=== PATIENT | male | born 1975 | race Caucasian/White ===

== ENCOUNTER 2016-06-29 09:08 | Emergency (ER) | payer BC ==
[2016-06-29 09:18] VITALS: BP 127/67
[2016-06-29 10:00] LABS: Hematocrit 42 % (42-52); Hemoglobin 14.6 g/dl (14.0-18.0); Mean Corpuscular HGB Conc 35 g/dl (31-36); Mean Corpuscular Hemoglobin 31 pg (27-31); Mean Corpuscular Volume 88 fL (80-94); Mean Platelet Volume 7 um3 (7.4-10.4); Red Blood Count 4.76 10^6/ul (4.0-5.4); Red Cell Distribution Width 13 % (10.5-15); White Blood Count 6.1 10^3/ul (3.5-10.8)
[2016-06-29 10:02] LABS: Urine Bilirubin Negative (Negative); Urine Glucose Negative (Negative); Urine Nitrite Negative (Negative)
[2016-06-29 10:18] LABS: ALT 14 U/L (7-52); AST 10 U/L (13-39); Albumin 4.2 g/dL (3.2-5.2); Alkaline Phosphatase 53 U/L (34-104); Anion Gap 6 mmol/L (2-11); BUN/Creatinine Ratio 16.2 (8-20); Blood Urea Nitrogen 11 mg/dL (6-24); C Reactive Protein < 1.00 mg/L (< 5.00); CO2 Carbon Dioxide 25 mmol/L (22-32); Calcium 9.2 mg/dL (8.6-10.3); Chloride 107 mmol/L (101-111); EGFR Non-African American 129.8 (>60); Globulin 2.3 g/dL (2-4); Glucose 94 mg/dL (70-100); Potassium 3.9 mmol/L (3.5-5.0); Sodium 138 mmol/L (133-145); Total Protein 6.5 g/dL (6.4-8.9)
--- NOTE | 2016-06-29 11:00 | RAD ---
Indication: RIGHT flank pain. History of urolithiasis. Comparison: No prior exams available on the [facility] for comparison. Technique: Renal ultrasound. 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 Normal renal cortical echogenicity. Mild caliectasis at the upper pole of the RIGHT kidney moiety. No conspicuous stones. Negative for perinephric fluid.
--- NOTE | 2016-06-29 14:09 | ED ---
Alberto Gomez Benjamin, scribed for Sreekanth Montero MD on 06/29/16 at 0945 . Abdominal Pain/Male - HPI Summary HPI Summary: 41yo male c/o nausea and right flank pain since last week. Pt reports pain with cough and movement. Pt states that cough, urination, and movement induces pain. Pt reports frequent Hx of UTI and kidney stones, and is wondering if he has another kidney stone today. - History of Current Complaint Chief Complaint: EDAbdPain Stated Complaint: GROIN PAIN/RT SIDE FLANK PAIN Hx Obtained From: Patient Onset/Duration: Lasting Weeks - 1 week Timing: Constant Severity Initially: Moderate Severity Currently: Moderate Pain Intensity: 6 Pain Scale Used: 0-10 Numeric Location: Flank - right Radiates: No Aggravating Factor(s): Movement, Other: - cough Alleviating Factor(s): Nothing Associated Signs And Symptoms: Positive: Urinary Symptoms - dysuria, Nausea - Allergies/Home Medications Allergies/Adverse Reactions: Allergies Allergy/AdvReac Type Severity Reaction Status Date / Time Bee Venom Allergy Swelling Verified 06/29/16 09:12 Of Face,Lips,& Throat Penicillins Allergy Rash Verified 06/29/16 09:11 PMH/Surg Hx/FS Hx/Imm Hx History: Reports: Hx Kidney Stones, Other Problems/Disorders - UTIs Infectious Disease History: No Infectious Disease History: Denies: Traveled Outside the [place] in Last 30 Days - Family History Known Family History: Positive: Cardiac Disease, Hypertension, Renal Disease - kidney problems Negative: Diabetes - Social History Occupation: Employed Full-time Lives: With Family Alcohol Use: None Hx Substance Use: No Substance Use Type: Reports: Marijuana Hx Tobacco Use: No Smoking Status (MU): Never Smoked Tobacco Review of Systems Constitutional: Negative Eyes: Negative ENT: Negative Cardiovascular: Negative Respiratory: Negative Positive: Nausea, Other - Right flank pain Positive: dysuria, flank pain Musculoskeletal: Negative Skin: Negative Neurological: Negative Psychological: Normal All Other Systems Reviewed And Are Negative: Yes Physical Exam Triage Information Reviewed: Yes Vital Signs On Initial Exam: Initial Vitals Temp Pulse Resp BP Pulse Ox 98.8 F 57 15 127/67 99 06/29/16 09:12 06/29/16 09:12 06/29/16 09:12 06/29/16 09:12 06/29/16 09:12 Vital Signs Reviewed: Yes Appearance: Positive: Well-Appearing, No Pain Distress, Well-Nourished Skin: Positive: Warm, Skin Color Reflects Adequate Perfusion, Dry Head/Face: Positive: Normal Head/Face Inspection Eyes: Positive: Normal ENT: Positive: Normal ENT inspection Neck: Positive: Supple, Nontender Respiratory/Lung Sounds: Positive: Clear to Auscultation, Breath Sounds Present Cardiovascular: Positive: RRR Abdomen Description: Positive: Nontender, Soft Bowel Sounds: Positive: Present Musculoskeletal: Positive: Normal, Strength/ROM Intact Neurological: Positive: Normal, Sensory/Motor Intact, Alert, Oriented to Person Place, Time, CN Intact II-III Psychiatric: Positive: Affect/Mood Appropriate Diagnostics - Vital Signs Vital Signs Temp Pulse Resp BP Pulse Ox 06/29/16 09:12 98.8 F 57 15 127/67 99 - Laboratory Lab Results: Lab Results 06/29/16 06/29/16 06/29/16 Range/Units 09:45 09:45 09:45 WBC 6.1 (3.5-10.8) 10^3/ul RBC 4.76 (4.0-5.4) 10^6/ul Hgb 14.6 (14.0-18.0) g/dl Hct 42 (42-52) % MCV 88 (80-94) fL MCH 31 (27-31) pg MCHC 35 (31-36) g/dl RDW 13 (10.5-15) % Plt Count 249 (150-450) 10^3/ul MPV 7 L (7.4-10.4) um3 Neut % (Auto) 60.7 (38-83) % Lymph % (Auto) 29.3 (25-47) % [place] % (Auto) 6.0 (1-9) % Eos % (Auto) 1.3 (0-6) % Baso % (Auto) 2.7 H (0-2) % Absolute Neuts (auto) 3.7 (1.5-7.7) 10^3/ul Absolute Lymphs (auto) 1.8 (1.0-4.8) 10^3/ul Absolute Monos (auto) 0.4 (0-0.8) 10^3/ul Absolute Eos (auto) 0.1 (0-0.6) 10^3/ul Absolute Basos (auto) 0.2 (0-0.2) 10^3/ul Absolute Nucleated RBC 0 10^3/ul Nucleated RBC % 0.1 Sodium 138 (133-145) mmol/L Potassium 3.9 (3.5-5.0) mmol/L Chloride 107 (101-111) mmol/L Carbon Dioxide 25 (22-32) mmol/L Anion Gap 6 (2-11) mmol/L BUN 11 (6-24) mg/dL Creatinine 0.68 (0.67-1.17) mg/dL Est GFR ( Amer) 167.0 (>60) Est GFR (Non-Af Amer) 129.8 (>60) BUN/Creatinine Ratio 16.2 (8-20) Glucose 94 (70-100) mg/dL Lactic Acid (0.5-2.0) mmol/L Calcium 9.2 (8.6-10.3) mg/dL Total Bilirubin 0.50 (0.2-1.0) mg/dL AST 10 L (13-39) U/L ALT 14 (7-52) U/L Alkaline Phosphatase 53 (34-104) U/L C-Reactive Protein < 1.00 (< 5.00) mg/L Total Protein 6.5 (6.4-8.9) g/dL Albumin 4.2 (3.2-5.2) g/dL Globulin 2.3 (2-4) g/dL Albumin/Globulin Ratio 1.8 (1-3) Urine Color Yellow Urine Appearance Clear Urine pH 6.0 (5-9) Ur Specific [place] 1.020 (1.010-1.030) Urine Protein Negative (Negative) Urine Ketones Negative (Negative) Urine Blood Negative (Negative) Urine Nitrate Negative (Negative) Urine Bilirubin Negative (Negative) Urine Urobilinogen Negative (Negative) Ur Leukocyte Esterase Negative (Negative) Urine Glucose Negative (Negative) 06/29/16 Range/Units 09:45 WBC (3.5-10.8) 10^3/ul RBC (4.0-5.4) 10^6/ul Hgb (14.0-18.0) g/dl Hct (42-52) % MCV (80-94) fL MCH (27-31) pg MCHC (31-36) g/dl RDW (10.5-15) % Plt Count (150-450) 10^3/ul MPV (7.4-10.4) um3 Neut % (Auto) (38-83) % Lymph % (Auto) (25-47) % [place] % (Auto) (1-9) % Eos % (Auto) (0-6) % Baso % (Auto) (0-2) % Absolute Neuts (auto) (1.5-7.7) 10^3/ul Absolute Lymphs (auto) (1.0-4.8) 10^3/ul Absolute Monos (auto) (0-0.8) 10^3/ul Absolute Eos (auto) (0-0.6) 10^3/ul Absolute Basos (auto) (0-0.2) 10^3/ul Absolute Nucleated RBC 10^3/ul Nucleated RBC % Sodium (133-145) mmol/L Potassium (3.5-5.0) mmol/L Chloride (101-111) mmol/L Carbon Dioxide (22-32) mmol/L Anion Gap (2-11) mmol/L BUN (6-24) mg/dL Creatinine (0.67-1.17) mg/dL Est GFR ( Amer) (>60) Est GFR (Non-Af Amer) (>60) BUN/Creatinine Ratio (8-20) Glucose (70-100) mg/dL Lactic Acid 0.9 (0.5-2.0) mmol/L Calcium (8.6-10.3) mg/dL Total Bilirubin (0.2-1.0) mg/dL AST (13-39) U/L ALT (7-52) U/L Alkaline Phosphatase (34-104) U/L C-Reactive Protein (< 5.00) mg/L Total Protein (6.4-8.9) g/dL Albumin (3.2-5.2) g/dL Globulin (2-4) g/dL Albumin/Globulin Ratio (1-3) Urine Color Urine Appearance Urine pH (5-9) Ur Specific [place] (1.010-1.030) Urine Protein (Negative) Urine Ketones (Negative) Urine Blood (Negative) Urine Nitrate (Negative) Urine Bilirubin (Negative) Urine Urobilinogen (Negative) Ur Leukocyte Esterase (Negative) Urine Glucose (Negative) Result Diagrams: 06/29/16 09:45 06/29/16 09:45 Lab Statement: Any lab studies that have been ordered have been reviewed, and results considered in the medical decision making process. - Ultrasound No standard instances Ultrasound Interpretation: Positive (See Comments) - Renal ultrasound. 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 Normal renal cortical echogenicity. Mild caliectasis at the upper pole of the RIGHT kidney moiety. No conspicuous stones. Negative for perinephric fluid. 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 Today he developed mild dysuria and he became concerned that he had a UTI. His urine was clear and an U/S of the right flank was negative for hydronephrosis. - Diagnoses Provider Diagnoses: FLANK PAIN Discharge - Discharge Plan Condition: Stable Disposition: HOME Patient Education Materials: Flank Pain (ED) Additional Instructions: Please follow up with your Primary Care Physician in a few days. The documentation as recorded by the Alberto lopez Benjamin accurately reflects the service I personally performed and the decisions made by me, Sreekanth Montero MD.
== END 2016-06-29 12:19 | disposition home or self-care (01) ==
LOC: ED 09:08
DX: R10.84 Generalized abdominal pain (principal); R11.0 Nausea; R30.0 Dysuria
CPT/HCPCS: 36415; 76775; 80053; 81003; 83605; 85025; 86140; 99282

== ENCOUNTER 2016-07-22 21:51 | Inpatient (IN) | payer BC ==
[2016-07-22] MEDS ORDERED: Ondansetron INJ* 2 MG/ML VIAL IV ONE (22:16)
[2016-07-22] MEDS ORDERED: NS 0.9% 1000 ML* 1,000 ML IV ONE (22:16)
[2016-07-22 23:24] LABS: Add Diff/Slide Review? Slide Review Added; Comments Flag Yes; Hematocrit 50 % (42-52); Hemoglobin 16.7 g/dl (14.0-18.0); Mean Corpuscular HGB Conc 34 g/dl (31-36); Mean Corpuscular Hemoglobin 29 pg (27-31); Mean Corpuscular Volume 87 fL (80-94); Red Blood Count 5.74 10^6/ul (4.0-5.4); Red Cell Distribution Width 14 % (10.5-15); White Blood Count 19.1 10^3/ul (3.5-10.8)
[2016-07-22 23:32] LABS: ALT 15 U/L (7-52); Albumin 5.5 g/dL (3.2-5.2); Alkaline Phosphatase 60 U/L (34-104); BUN/Creatinine Ratio 13.8 (8-20); Blood Urea Nitrogen 16 mg/dL (6-24); C Reactive Protein < 1.00 mg/L (< 5.00); CO2 Carbon Dioxide 20 mmol/L (22-32); Chloride 101 mmol/L (101-111); EGFR African American 90.1 (>60); EGFR Non-African American 70.1 (>60); Globulin 2.6 g/dL (2-4); Glucose 157 mg/dL (70-100); Magnesium 1.9 mg/dL (1.9-2.7); Sodium 138 mmol/L (133-145); Total Protein 8.1 g/dL (6.4-8.9)
[2016-07-22 23:43] LABS: AST 19 U/L (13-39); Anion Gap 17 mmol/L (2-11); Potassium 4.5 mmol/L (3.5-5.0)
[2016-07-22] MEDS ORDERED: Metoclopramide IV* 5 MG/ML 2 ML VIAL IV ONE (23:46)
[2016-07-23] MEDS ORDERED: Ketorolac INJ* 30 MG/ML 1 ML VIAL IV PUSH ONE (00:43)
[2016-07-23] MEDS ORDERED: Iohexol 300* (CONTRAST) 10 ML SDV IV ONE (00:53)
--- NOTE | 2016-07-23 01:09 | ED ---
Alberto Gomez Benjamin, scribed for Salazar Arellano MD on 07/22/16 at 2218 . Abdominal Pain/Male - HPI Summary HPI Summary: 41yo male c/o nausea and flank pain on and off for couple of weeks. Pt states "feels like i've been passing microstones." Pt has hx of kidney stones. Pt reports pain worsening with BM. Today, pt started vomiting since 4pm. - History of Current Complaint Chief Complaint: EDNauseaVomitDiarrh Stated Complaint: NAUSEA,VOMITING Time Seen by Provider: 07/22/16 22:13 Hx Obtained From: Patient, Family/Assistant Superintendent - Onset/Duration: Sudden Onset, Still Present Timing: Constant Severity Initially: Moderate Severity Currently: Moderate Pain Intensity: 6 Pain Scale Used: 0-10 Numeric Location: Flank Aggravating Factor(s): Other: - BM Alleviating Factor(s): Nothing Associated Signs And Symptoms: Positive: Nausea, Vomiting - Allergies/Home Medications Allergies/Adverse Reactions: Allergies Allergy/AdvReac Type Severity Reaction Status Date / Time Bee Venom Allergy Swelling Verified 06/29/16 09:12 Of Face,Lips,& Throat Penicillins Allergy Rash Verified 06/29/16 09:11 Home Medications: Home Medications NK [No Home Medications Reported] 07/23/16 [History Confirmed 07/23/16] PMH/Surg Hx/FS Hx/Imm Hx History: Reports: Hx Kidney Stones, Other Problems/Disorders - UTIs Infectious Disease History: No Infectious Disease History: Denies: Traveled Outside the [place] in Last 30 Days - Family History Known Family History: Positive: Cardiac Disease, Hypertension, Renal Disease - kidney problems Negative: Diabetes - Social History Alcohol Use: None Hx Substance Use: No Substance Use Type: Reports: Marijuana Hx Tobacco Use: No Smoking Status (MU): Never Smoked Tobacco Review of Systems Constitutional: Negative Eyes: Negative ENT: Negative Cardiovascular: Negative Respiratory: Negative Positive: Vomiting, Nausea Positive: flank pain Musculoskeletal: Negative Skin: Negative Neurological: Negative Psychological: Normal All Other Systems Reviewed And Are Negative: Yes Physical Exam Triage Information Reviewed: Yes Vital Signs On Initial Exam: Initial Vitals Temp Pulse Resp BP Pulse Ox 96.7 F 92 18 149/84 100 07/22/16 21:54 07/22/16 21:54 07/22/16 21:54 07/22/16 21:54 07/22/16 21:54 Vital Signs Reviewed: Yes Appearance: Positive: Well-Appearing, Pain Distress - mildly uncomfortable Skin: Positive: Warm Eyes: Positive: EOMI, FRANK ENT: Positive: Hearing grossly normal Neck: Positive: Supple Respiratory/Lung Sounds: Positive: Breath Sounds Present, Decreased Breath Sounds Cardiovascular: Positive: Normal Abdomen Description: Positive: No Organomegaly, Soft, Other: - mild diffuse tenderness. Negative: CVA Tenderness (R), CVA Tenderness (L), Distended Bowel Sounds: Positive: Present Musculoskeletal: Positive: Strength/ROM Intact Neurological: Positive: Sensory/Motor Intact Psychiatric: Positive: Affect/Mood Appropriate Diagnostics - Vital Signs Vital Signs Temp Pulse Resp BP Pulse Ox 07/22/16 21:54 96.7 F 92 18 149/84 100 - Laboratory Lab Results: Lab Results 07/22/16 07/22/16 Range/Units 23:10 23:10 WBC 19.1 H (3.5-10.8) 10^3/ul RBC 5.74 H (4.0-5.4) 10^6/ul Hgb 16.7 (14.0-18.0) g/dl Hct 50 (42-52) % MCV 87 (80-94) fL MCH 29 (27-31) pg MCHC 34 (31-36) g/dl RDW 14 (10.5-15) % Plt Count Not Reportable Neut % (Auto) 91.8 H (38-83) % Lymph % (Auto) 4.0 L (25-47) % [place] % (Auto) 3.7 (1-9) % Eos % (Auto) 0 (0-6) % Baso % (Auto) 0.5 (0-2) % Absolute Neuts (auto) 17.5 H (1.5-7.7) 10^3/ul Absolute Lymphs (auto) 0.8 L (1.0-4.8) 10^3/ul Absolute Monos (auto) 0.7 (0-0.8) 10^3/ul Absolute Eos (auto) 0 (0-0.6) 10^3/ul Absolute Basos (auto) 0.1 (0-0.2) 10^3/ul Absolute Nucleated RBC 0 10^3/ul Nucleated RBC % 0 Sodium 138 (133-145) mmol/L Potassium 4.5 (3.5-5.0) mmol/L Chloride 101 (101-111) mmol/L Carbon Dioxide 20 L (22-32) mmol/L Anion Gap 17 H (2-11) mmol/L BUN 16 (6-24) mg/dL Creatinine 1.16 (0.67-1.17) mg/dL Est GFR ( Amer) 90.1 (>60) Est GFR (Non-Af Amer) 70.1 (>60) BUN/Creatinine Ratio 13.8 (8-20) Glucose 157 H (70-100) mg/dL Calcium 11.0 H (8.6-10.3) mg/dL Magnesium 1.9 (1.9-2.7) mg/dL Total Bilirubin 1.00 (0.2-1.0) mg/dL AST 19 (13-39) U/L ALT 15 (7-52) U/L Alkaline Phosphatase 60 (34-104) U/L C-Reactive Protein < 1.00 (< 5.00) mg/L Total Protein 8.1 (6.4-8.9) g/dL Albumin 5.5 H (3.2-5.2) g/dL Globulin 2.6 (2-4) g/dL Albumin/Globulin Ratio 2.1 (1-3) Result Diagrams: 07/22/16 23:10 07/22/16 23:10 Lab Statement: Any lab studies that have been ordered have been reviewed, and results considered in the medical decision making process. - CT CT A/P W CT Interpretation: No Acute Changes CT Interpretation Completed By: Radiologist Re-Evaluation - Re-Evaluation First Eval Comment: pt mildly improved but still with nausea, vomit and pain. d/w hospitalist Abdominal Pain Fem Course/Dx - Diagnoses Provider Diagnoses: Abdominal pain - Provider Notifications Instructed by Provider To: Admit As Inpatient Discharge - Discharge Plan Condition: Fair Disposition: ADMITTED TO [facility] The documentation as recorded by the Alberto lopez Benjamin accurately reflects the service I personally performed and the decisions made by me, Salazar Arellano MD.
[2016-07-23 01:54] LABS: Urine Bacteria Absent (Absent); Urine Bilirubin Negative (Negative); Urine Glucose Negative (Negative); Urine Nitrite Negative (Negative)
[2016-07-23] MEDS ORDERED: Metoclopramide IV* 5 MG/ML 2 ML VIAL IV ONE (02:44)
[2016-07-23] MEDS ORDERED: Morphine INJ* 4 MG/ML 1 ML CARPUJECT IV ONE (02:44)
[2016-07-23] MEDS ORDERED: Ondansetron INJ* 2 MG/ML VIAL IV PRN (04:40)
[2016-07-23] MEDS: HYDROmorphone INJ* 1 MG/ML CARPUJECT SYRINGE IV SLOW PU PRN ×4 (05:03→17:19)
[2016-07-23] MEDS: Ondansetron INJ* 2 MG/ML VIAL IV PRN ×3 (05:03→17:19)
[2016-07-23] MEDS: NS 0.9% 1000 ML* 1,000 ML IV SCH ×2 (07:20→17:27)
--- NOTE | 2016-07-23 08:05 | RAD ---
INDICATION: Cough COMPARISON: None TECHNIQUE: PA and lateral dual-energy views were obtained. FINDINGS: Bones/Soft Tissues: There are no acute bony findings. Cardiomediastinal: The cardiomediastinal silhouette is normal. Lungs: There are no infiltrates. Pleura: There are no pleural effusions. Other: None IMPRESSION: NEGATIVE EXAMINATION.
--- NOTE | 2016-07-23 08:11 | RAD ---
INDICATION: Abdominal pain. History of urolithiasis. Previous ureteral stent. Horseshoe kidney. COMPARISON: June 29, 2016 renal ultrasound. TECHNIQUE: Multidetector CT images were obtained from the lung bases to the ischial tuberosities with 139 mL Omnipaque 300 IV and oral contrast. Multiplanar reformation. REPORT: Unremarkable visualized inferior thorax. Typical location focal fatty infiltration at the LEFT medial hepatic segment flanking the fissure for the ligamentum teres. No suspicious hepatic lesions. No CT abnormality of the gallbladder. Negative for biliary dilatation. Unremarkable pancreas and spleen. Negative for CT abnormality of the upper GI, small bowel, retrocecal appendix, colon. Negative for ascites, free air, hernias. Normal adrenal glands. Horseshoe morphology kidney with symmetric nephrograms and pyelograms at the RIGHT and LEFT moieties. Negative for conspicuous stones, hydronephrosis, or suspicious focal renal lesions. Unremarkable ureters and urinary bladder. Unremarkable prostate and seminal vesicles. Negative for lymphadenopathy. Normal diameter abdominal aorta and iliac arteries. Physiologic distention of the IVC. Negative for suspicious osseous lesions. IMPRESSION: 1. Horseshoe morphology kidney. Negative for obstructive uropathy, focal renal lesions, or perirenal or periureteral inflammatory change. 2. Normal appendix documented. 3. No acute abdominal pelvic pathologic process evident.
--- NOTE | 2016-07-23 09:52 | HP ---
DATE OF ADMISSION: 07/23/16 CHIEF COMPLAINT: Abdominal pain. HISTORY OF PRESENT ILLNESS: The patient is a 41-year-old gentleman who presents to the [facility] with the chief complaint of nausea, vomiting and diarrhea, and abdominal pain. He has no fever or chills. His last bowel movement he said was "clumpy"; that was yesterday. The abdominal pain was in the mid section and was crampy-like. He states that sometimes he gets this pain even pain even when just thinking of eating. He says, on reflection, his pain has actually been on and off with nausea and vomiting and diarrhea for about 10 years. He has actually had a colonoscopy for it. In the ED, the patient was evaluated and had AN abdominopelvic CT which, other than a horseshoe kidney, was rather unremarkable. PAST MEDICAL HISTORY: Notable for horseshoe kidney. ALLERGIES/ADVERSE REACTIONS: BEE VENOM AND PENICILLIN. FAMILY HISTORY: Mother is alive at 62, alive and well; father is alive 70, alive and well. SOCIAL HISTORY: Occasional marijuana. No tobacco. No alcohol. He's trained in [employer]. He is . He has three children. Hawa Hayden, is his healthcare proxy and . REVIEW OF SYSTEMS: A 14-point review of systems is completed with the patient. All pertinent positives and negatives are in the history of present illness, otherwise it is negative. PHYSICAL EXAMINATION GENERAL: A pleasant gentleman, lying in bed, in no acute distress. VITAL SIGNS: Temperature 97.9 degrees, heart rate 75 beats per minute, respiratory rate 16 breaths per minute, pulse ox 96%, and blood pressure 136/52. HEENT: Normocephalic and atraumatic. Pupils are equal, round and reactive to light. Moist mucous membranes. NECK: Supple. No JVD, bruits, palpable thyroid, or lymphadenopathy. CHEST: Clear to auscultation and percussion bilaterally. CARDIOVASCULAR: S1, S2 appreciated. Regular rate and rhythm. ABDOMEN: Positive bowel sounds in all 4 quadrants. Soft. It is nontender and nondistended. EXTREMITIES: No cyanosis, clubbing, or edema; +2 pulses bilaterally. NEUROLOGIC: Alert and oriented x3. Moves all extremities. SKIN: No rashes or abnormalities. DIAGNOSTIC STUDIES/LAB DATA: White count 19.1, hemoglobin 16.7, hematocrit 50 , platelets not reportable, clumped. Sodium 138, potassium 4.5, chloride 101, CO2 20, BUN 16, creatinine 1.16. Urinalysis +1 WBC, +1 RBC. His chest x-ray was interpreted by radiology as negative examination. His abdominopelvic CT was interpreted by radiology as horseshoe morphology kidney. Negative for obstructive uropathy, focal lesions or inflammatory change. Normal appendix documented. No acute abdominopelvic pathology process evident. ASSESSMENT AND PLAN: 1. Abdominal pain with nausea, vomiting or diarrhea. It is unclear as to what the etiology of this is. It is probably a gastroenteritis. However, he has had this on and off for 10 years. What is suspicious is the white count. Otherwise , I would think he probably has something like irritable bowel syndrome, at least a variation of that. Negative colonoscopy, negative workup today would be a diagnosis of exclusion. We will place the patient on IV fluids, Zofran p.r.n. and Dilaudid p.r.n. for pain. If he's still feeling well, he can be discharged later today, but we should make him follow up with enrollment advisor as an outpatient. 2. FEN. Clear liquid diet, advance as tolerated. 3. DVT prophylaxis. None; he's young and ambulatory. 4. The patient is a full code. TIME SPENT: Over 75 minutes were spent on this H and P, more than 40 minutes of which were spent in direct [id number] contact with the patient, evaluation , physical exam, counseling, and coordination of care. [id number]/CPS #: [id number] MTDD
--- NOTE | 2016-07-23 17:05 | PN ---
Subjective Date of Service: 07/23/16 Interval History: Patient seen and examined at bedside. Pt states that he is starting to feel better, but continues to have nausea and mild left lower quad abdominal pain. Denies fever, chills, shortness of breath, chest discomfort, V/D. Family History: Unchanged from Admission Social History: Unchanged from Admission Past Medical History: Unchanged from Admission Objective Active Medications: Hydromorphone HCl (Dilaudid Iv*) 1 mg IV SLOW PU Q4H PRN Reason: PAIN Sodium Chloride (Ns 0.9% 1000 Ml*) 1,000 mls @ 100 mls/hr IV PER RATE YARITZA Ondansetron HCl (Zofran Inj*) 4 mg IV Q4H PRN Reason: NAUSEA Prochlorperazine Edisylate (Compazine Inj*) 5 mg IV Q6H PRN Reason: NAUSEA/ VOMITING Vital Signs 07/23/16 07/23/16 07/23/16 05:03 05:54 06:00 Temperature Pulse Rate Respiratory 18 Rate Blood Pressure 99/46 100/39 (mmHg) O2 Sat by Pulse Oximetry 07/23/16 07/23/16 07/23/16 06:46 07:22 07:25 Temperature 97.9 F 97.9 F Pulse Rate 75 75 Respiratory 18 16 16 Rate Blood Pressure 136/52 136/52 (mmHg) O2 Sat by Pulse 96 96 Oximetry 07/23/16 07/23/16 07/23/16 07:55 12:09 13:22 Temperature 97.7 F Pulse Rate 62 Respiratory 16 16 16 Rate Blood Pressure 133/56 (mmHg) O2 Sat by Pulse 99 Oximetry 07/23/16 07/23/16 14:22 15:15 Temperature 97.9 F Pulse Rate 66 Respiratory 18 16 Rate Blood Pressure 108/55 (mmHg) O2 Sat by Pulse 97 Oximetry Oxygen Devices in Use Now: None Appearance: NAD, laying in bed. Eyes: No Scleral Icterus, PERRLA Ears/Nose/Mouth/Throat: NL Teeth, Lips, Gums, Mucous Membranes Moist Neck: NL Appearance and Movements; NL JVP, Trachea Midline Respiratory: Symmetrical Chest Expansion and Respiratory Effort, Clear to Auscultation Cardiovascular: NL Sounds; No Murmurs; No JVD, RRR Abdominal: NL Sounds; No Tenderness; No Distention - Bowel sounds present Extremities: No Edema Skin: No Rash or Ulcers Neurological: Alert and Oriented x 3, NL Muscle Strength and Tone Lines/Tubes/Other Access: Clean, Dry and Intact Peripheral IV - site benign Nutrition: Taking PO's Result Diagrams: 07/22/16 23:10 07/22/16 23:10 Assess/Plan/Problems-Billing Assessment: Mr. Wilson is a 41 yo male with PMH significant for a horseshoe shaped kidney who presented to the emergency room with complaints of N/V/D and abdominal pain. - Patient Problems (1) Nausea vomiting and diarrhea Code(s): R11.2 - NAUSEA WITH VOMITING, UNSPECIFIED; R19.7 - DIARRHEA, UNSPECIFIED SNOMED Code(s): 6175305 Comment: - Diarrhea and vomiting resolved - Continues to have nausea - Leukocytosis, suspect related to viral gastroenteritis - Continue IVF (2) DVT prophylaxis Code(s): WUI1039 - SNOMED Code(s): 133219281 Comment: - Ambulate (3) Full code status Code(s): Z78.9 - OTHER SPECIFIED HEALTH STATUS SNOMED Code(s): 969478859 Status and Disposition: OBV. Discharge to home when medically stable, possibly in the AM.
[2016-07-23] MEDS: PROCHLORPERAZINE INJ 5 MG/ML 2 ML VIAL IV PRN (20:39)
[2016-07-24] MEDS: NS 0.9% 1000 ML* 1,000 ML IV SCH (03:45)
[2016-07-24] MEDS: Ondansetron INJ* 2 MG/ML VIAL IV PRN ×2 (03:46→09:17)
[2016-07-24] MEDS: HYDROmorphone INJ* 1 MG/ML CARPUJECT SYRINGE IV SLOW PU PRN ×5 (03:47→22:00)
[2016-07-24] MEDS: PROCHLORPERAZINE INJ 5 MG/ML 2 ML VIAL IV PRN ×3 (05:16→21:57)
[2016-07-24 07:02] LABS: Hematocrit 41 % (42-52); Hemoglobin 14.3 g/dl (14.0-18.0); Mean Corpuscular HGB Conc 35 g/dl (31-36); Mean Corpuscular Hemoglobin 31 pg (27-31); Mean Corpuscular Volume 88 fL (80-94); Mean Platelet Volume 9 um3 (7.4-10.4); Red Blood Count 4.68 10^6/ul (4.0-5.4); Red Cell Distribution Width 14 % (10.5-15); White Blood Count 10.7 10^3/ul (3.5-10.8)
[2016-07-24 07:07] LABS: BUN/Creatinine Ratio 13.3 (8-20); Calcium 9.6 mg/dL (8.6-10.3); EGFR African American 149.1 (>60); EGFR Non-African American 115.9 (>60)
[2016-07-24] MEDS ORDERED: HYDROmorphone INJ* 1 MG/ML CARPUJECT SYRINGE ONE (08:10)
[2016-07-24] MEDS ORDERED: Ketorolac INJ* 30 MG/ML 1 ML VIAL ONE (09:27)
[2016-07-24] MEDS: Ketorolac INJ* 30 MG/ML 1 ML VIAL IV PUSH PRN ×2 (09:30→15:51)
[2016-07-24 10:27] LABS: Add on Test ED Complete
--- NOTE | 2016-07-24 10:35 | PN ---
Subjective Date of Service: 07/24/16 Interval History: Pt is feeling better than when he presented though still very nauseated. He states even the thought of food makes his nauseous. He thinks anxiety may be playing a role but he is unclear how much. His abdominal pain is still present though perhaps slightly better. Objective Active Medications: Hydromorphone HCl (Dilaudid Iv*) 0.5 mg IV SLOW PU Q2H PRN PRN Reason: PAIN Last Admin: 07/24/16 08:13 Dose: 0.5 mg Ketorolac Tromethamine (Toradol Inj*) 30 mg IV PUSH Q6H PRN PRN Reason: PAIN Last Admin: 07/24/16 09:30 Dose: 30 mg Lorazepam (Ativan Inj*) 0.5 mg IV PUSH Q6H PRN PRN Reason: ANXIETY Metoclopramide HCl (Reglan Iv*) 10 mg IV AC YARITZA Ondansetron HCl (Zofran Inj*) 4 mg IV Q4H PRN PRN Reason: NAUSEA Last Admin: 07/24/16 09:17 Dose: 4 mg Prochlorperazine Edisylate (Compazine Inj*) 5 mg IV Q6H PRN PRN Reason: NAUSEA/VOMITING Last Admin: 07/24/16 05:16 Dose: 5 mg Vital Signs 07/23/16 07/23/16 07/23/16 12:09 13:22 14:22 Temperature 97.7 F Pulse Rate 62 Respiratory 16 16 18 Rate Blood Pressure 133/56 (mmHg) O2 Sat by Pulse 99 Oximetry 07/23/16 07/23/16 07/23/16 15:15 17:09 17:19 Temperature 97.9 F 97.5 F Pulse Rate 66 Respiratory 16 20 Rate Blood Pressure 108/55 (mmHg) O2 Sat by Pulse 97 Oximetry 07/23/16 07/23/16 07/23/16 18:19 19:22 20:00 Temperature 98.0 F Pulse Rate 66 Respiratory 16 18 20 Rate Blood Pressure 119/62 (mmHg) O2 Sat by Pulse 96 Oximetry 07/24/16 07/24/16 07/24/16 00:07 03:39 03:47 Temperature 98.1 F 98.2 F Pulse Rate 64 65 Respiratory 16 20 18 Rate Blood Pressure 128/62 165/89 (mmHg) O2 Sat by Pulse 98 100 Oximetry 07/24/16 07/24/16 07/24/16 04:47 07:05 07:26 Temperature 97.8 F Pulse Rate 55 Respiratory 20 16 18 Rate Blood Pressure 132/68 (mmHg) O2 Sat by Pulse 99 Oximetry 07/24/16 07/24/16 08:13 09:13 Temperature Pulse Rate Respiratory 16 16 Rate Blood Pressure (mmHg) O2 Sat by Pulse Oximetry Oxygen Devices in Use Now: None Appearance: Middle aged male lying in bed, NAD Eyes: No Scleral Icterus Ears/Nose/Mouth/Throat: Mucous Membranes Moist Respiratory: Symmetrical Chest Expansion and Respiratory Effort, Clear to Auscultation Cardiovascular: NL Sounds; No Murmurs; No JVD, RRR, No Edema Abdominal: - - BS+ soft, ND, diffusely tender to deep palpation though LLQ the worst Extremities: No Clubbing, Cyanosis Skin: No Rash or Ulcers, No Nodules or Sclerosis Neurological: Alert and Oriented x 3 Result Diagrams: 07/24/16 06:31 07/24/16 06:32 Additional Lab and Data: Lab Results 07/22/16 07/22/16 Range/Units 23:10 23:10 WBC 19.1 H (3.5-10.8) 10^3/ul RBC 5.74 H (4.0-5.4) 10^6/ul Hgb 16.7 (14.0-18.0) g/dl Hct 50 (42-52) % MCV 87 (80-94) fL MCH 29 (27-31) pg MCHC 34 (31-36) g/dl RDW 14 (10.5-15) % Plt Count Not Reportable Neut % (Auto) 91.8 H (38-83) % Lymph % (Auto) 4.0 L (25-47) % [place] % (Auto) 3.7 (1-9) % Eos % (Auto) 0 (0-6) % Baso % (Auto) 0.5 (0-2) % Absolute Neuts (auto) 17.5 H (1.5-7.7) 10^3/ul Absolute Lymphs (auto) 0.8 L (1.0-4.8) 10^3/ul Absolute Monos (auto) 0.7 (0-0.8) 10^3/ul Absolute Eos (auto) 0 (0-0.6) 10^3/ul Absolute Basos (auto) 0.1 (0-0.2) 10^3/ul Absolute Nucleated RBC 0 10^3/ul Nucleated RBC % 0 Sodium 138 (133-145) mmol/L Potassium 4.5 (3.5-5.0) mmol/L Chloride 101 (101-111) mmol/L Carbon Dioxide 20 L (22-32) mmol/L Anion Gap 17 H (2-11) mmol/L BUN 16 (6-24) mg/dL Creatinine 1.16 (0.67-1.17) mg/dL Est GFR ( Amer) 90.1 (>60) Est GFR (Non-Af Amer) 70.1 (>60) BUN/Creatinine Ratio 13.8 (8-20) Glucose 157 H (70-100) mg/dL Calcium 11.0 H (8.6-10.3) mg/dL Magnesium 1.9 (1.9-2.7) mg/dL Total Bilirubin 1.00 (0.2-1.0) mg/dL AST 19 (13-39) U/L ALT 15 (7-52) U/L Alkaline Phosphatase 60 (34-104) U/L C-Reactive Protein < 1.00 (< 5.00) mg/L Total Protein 8.1 (6.4-8.9) g/dL Albumin 5.5 H (3.2-5.2) g/dL Globulin 2.6 (2-4) g/dL Albumin/Globulin Ratio 2.1 (1-3) Assess/Plan/Problems-Billing Mr. Wilson is a 41 yo male with PMHx significant for a horseshoe kidney who presented to the emergency room with complaints of N/V/D and abdominal pain. - Patient Problems (1) Nausea and vomiting Current Visit: Yes Status: Acute Code(s): R11.2 - NAUSEA WITH VOMITING, UNSPECIFIED SNOMED Code(s): 55342392 Comment: The patient give history that he has been nauseated for at least a couple weeks though his states that his nausea has been going on for perhaps months. The vomiting is more acute and developed about 3 days ago. He continues to vomit-he vomited twice while I was in the room. Will try standing reglan prior to meals. Continue prn zofran and compazine. GI consult to happen today for history of persistent nausea. He has not had a BM since 07/22/16-no diarrhea. (2) Abdominal pain Current Visit: Yes Status: Acute Code(s): R10.9 - UNSPECIFIED ABDOMINAL PAIN SNOMED Code(s): 13302401 Comment: Etiology is not clear. I have added on lipase/amylase per recommendations from Dr. Burger. CT abd/pelvis without significant findings. Continue prn pain medications. He states having a BM does not necessarily make the pain better-sometimes it is worse after a BM. Continue to monitor symptoms. (3) DVT prophylaxis Current Visit: Yes Status: Acute Code(s): YPO0768 - SNOMED Code(s): 012737937 Comment: ambulation (4) Full code status Current Visit: Yes Status: Acute Code(s): Z78.9 - OTHER SPECIFIED HEALTH STATUS SNOMED Code(s): 061792894 Status and Disposition: .
[2016-07-24 10:43] LABS: Amylase 21 U/L (29-103); Lipase < 10 U/L (11.0-82.0)
[2016-07-24] MEDS: LORazepam INJ* 2 MG/ML 1 ML VIAL IV PUSH PRN ×2 (10:43→17:58)
[2016-07-24] MEDS: Metoclopramide IV* 5 MG/ML 2 ML VIAL IV SCH ×2 (11:58→17:57)
[2016-07-24 13:21] LABS: Hematocrit 39 % (42-52); Hemoglobin 13.5 g/dl (14.0-18.0); Mean Corpuscular HGB Conc 35 g/dl (31-36); Mean Corpuscular Hemoglobin 30 pg (27-31); Mean Corpuscular Volume 87 fL (80-94); Mean Platelet Volume 8 um3 (7.4-10.4); Red Cell Distribution Width 13 % (10.5-15); White Blood Count 10.1 10^3/ul (3.5-10.8)
--- NOTE | 2016-07-24 20:16 | CONS ---
GASTROENTEROLOGY CONSULT: DATE: 07/24/16 - ROOM #332 CONSULTING PHYSICIAN: Rochelle Tomlinson DO. REASON FOR CONSULT: Nausea and vomiting which began 2 days ago, though says he has been feeling poorly since March, and history of similar N+V complaints goes back 10 years. HISTORY OF PRESENT ILLNESS: This 41-year-old man presented to the emergency room complaining of nausea and vomiting. He had stable vitals but persistence of the complaint and statement that this had caused hospitalizations before, resulted in his being admitted evening, 07/22/16. Since admission he has remained afebrile. He has retched into a basin. Per report he has been unable to tolerate anything p.o. He has not had any bowel movements, though had reported some loose stools at home. He has not had any antibiotics in several years. Initially in asking for the history, his (a nurse at [facility] in the Cardiac Step-Down Unit) started by saying that he began feeling poorly in March. The patient then said he just found himself "not wanting food." He then said that he was so hungry but "just not as much." He said this went on with all foods. He was queasy at times but did not vomit. He made a trip to [place] to arrange all his affairs (he just recently moved from there and got ) and was telling his that he was feeling poorly while there. He came back. It is difficult to get a precise timeline on events and as to when he started to have episodes of vomiting. He admits he is a vague historian and says "I should write things down." (the next day it came out hehad seen an "ex girlfriend" on the trip) He would often get up at 3 in the morning and vomit. He would usually then take a hot shower. He says the first remedy he tried himself was smoking marijuana a couple of times of day. He also tried wilfully to decrease his intake or to drink protein shakes. His added in that he tried Tums or Rolaids or omeprazole but that none of them were used consistently. Symptoms have been a little more intense the last 3 weeks and he really got the vomiting recurrently about 2 days ago. The loose stools are per his "at least once a day." There has been no blood or fever. Here in the hospital [facility], he has taken hot shower several times saying that that makes him feel better. PAST MEDICAL HISTORY: 1. Recurrent nausea and vomiting - he states it started 10 years ago and he has been admitted to a hospital at [place] where no studies were done. He was at [facility] around 2010 and says he was there for 2 weeks. He had an upper endoscopy but states they could never figure out anything. He was hospitalized at a hospital in [place] for 3 or 4 days this spring, [facility]. He states that they waited out the symptom and he did not really have any testing. He had a primary assigned to him then, but never saw them. 2. Horseshoe kidney. 3. Vasectomy in 2000. ALLERGIES: PENICILLIN and BEE VENOM. FAMILY HISTORY: An uncle and a couple of cousins had celiac disease. There is no other history of gastrointestinal problems in the family. SOCIAL HISTORY: He is from the [facility] originally and comes back there recurrently. His current was taking care of his grandfather at [facility] and that is how they met. After a month of courtship, they in November 2015. 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 He lived near [place] in [place], [place], 2003 to 2010 and then back to the [facility], back to [place] and then for the last 3 years, 2012 to 2015, he lived in the [place] area. He has been before and his lives in [place] with his children ages 15 and 16. A 22-year-old with a different mother is a student at [employer] (formerly [employer]). REVIEW OF SYSTEMS: He had a ureteral stent placed in August 2015 in [place]. There is no history of syncope, palpations, AL, TB, hemoptysis, hepatitis or abdominal surgery. He states his weight has been "up and down." He was in the emergency room here in 2004 for a mental health evaluation. PHYSICAL EXAMINATION: He is a moderately overweight young man initially in no distress, lying flat in bed. Temperature this morning 97.8, pulse 55, blood pressure 132/68, O2 saturation 99%. At one point during the interview, he begins to shudder and show quivering of his jaw, and it goes on recurrently. He states it is because he is cold, though the nurses have seen it at other times. He becomes shaky recurrently, the shaking is erratic. He does not feel warm. He is requesting to go in and take a hot shower. He does admit that he is under a lot of stress and "I don't want to talk about it now." HEENT exam shows no icterus. There is no adenopathy. Lungs are clear. Heart sounds are regular. The abdomen has active bowel sounds and is firm with some voluntary guarding widespread. Perianal inspection is unremarkable and rectal reveals smooth mucosa and no specimen. DIAGNOSTIC STUDIES/LAB DATA: CBC today shows hemoglobin 14.3, hematocrit 41, MCV 88, platelets 219, white count 10.7. Pancreatic enzymes normal and LFTs normal with albumin 5.5 on admission (4.2 on 06/29/16). IMPRESSION: This 41-year-old man presents with nausea, vomiting, and diarrhea always vaguely expressed history of years, months and then days. None of the patterns fit gastroesophageal reflux disease or peptic ulcer disease particularly well, although the history of awakening at 3 a.m. can be considered suggestive of gastroesophageal reflux disease. More likely it relates to stress or an anxiety reaction resulting in awakening at that time and then the emergence of somatic expression of his stress. Ten years of N+V is not likely from a structural GI lesion. Cannabis paradoxical effect on N+V possible. It is fairly likely that as part of this evaluation, an upper endoscopy would be useful, so for the moment, the plans discussed with the patient include reviewing his old records and observing his course. Getting him to discuss the full sources of stress would be useful. [id number]/[facility] #: [id number] KENN
[2016-07-25] MEDS: HYDROmorphone INJ* 1 MG/ML CARPUJECT SYRINGE IV SLOW PU PRN (02:18)
[2016-07-25] MEDS: Ondansetron INJ* 2 MG/ML VIAL IV PRN ×2 (02:21→15:15)
[2016-07-25] MEDS: LORazepam INJ* 2 MG/ML 1 ML VIAL IV PUSH PRN ×2 (02:24→15:15)
[2016-07-25] MEDS: Metoclopramide IV* 5 MG/ML 2 ML VIAL IV SCH ×3 (07:38→16:58)
[2016-07-25] MEDS ORDERED: Midazolam* 1 MG/ML 10 ML VIAL (10 MG) ONE (09:22)
[2016-07-25] MEDS ORDERED: Meperidine SYRINGE* 50 MG/ML ONE ×2 (09:22→09:53)
--- NOTE | 2016-07-25 11:53 | PN ---
Subjective Date of Service: 07/25/16 Interval History: Pt is feeling better but groggy following his EGD. He states his abdominal pain continues to improve. He is willing to try to eat a bland diet for lunch. Objective Active Medications: Hydromorphone HCl (Dilaudid Iv*) 0.5 mg IV SLOW PU Q2H PRN PRN Reason: PAIN Last Admin: 07/25/16 02:18 Dose: 0.5 mg Ketorolac Tromethamine (Toradol Inj*) 30 mg IV PUSH Q6H PRN PRN Reason: PAIN Last Admin: 07/24/16 15:51 Dose: 30 mg Lorazepam (Ativan Inj*) 0.5 mg IV PUSH Q6H PRN PRN Reason: ANXIETY Last Admin: 07/25/16 02:24 Dose: 0.5 mg Metoclopramide HCl (Reglan Iv*) 10 mg IV AC YARITZA Last Admin: 07/25/16 07:38 Dose: 10 mg Omeprazole (Prilosec Cap*) 20 mg PO 0730 YARITZA Ondansetron HCl (Zofran Inj*) 4 mg IV Q4H PRN PRN Reason: NAUSEA Last Admin: 07/25/16 02:21 Dose: 4 mg Prochlorperazine Edisylate (Compazine Inj*) 5 mg IV Q6H PRN PRN Reason: NAUSEA/VOMITING Last Admin: 07/24/16 21:57 Dose: 5 mg Vital Signs 07/24/16 07/24/16 07/24/16 13:13 15:28 17:58 Temperature 97.4 F Pulse Rate 65 Respiratory 16 20 16 Rate Blood Pressure 156/83 (mmHg) O2 Sat by Pulse 100 Oximetry 07/24/16 07/24/16 07/24/16 18:58 19:24 22:00 Temperature 98.5 F Pulse Rate 68 Respiratory 16 16 16 Rate Blood Pressure 134/59 (mmHg) O2 Sat by Pulse 97 Oximetry 07/24/16 07/24/16 07/25/16 23:00 23:27 02:18 Temperature 98.1 F Pulse Rate 75 Respiratory 16 16 16 Rate Blood Pressure 124/67 (mmHg) O2 Sat by Pulse 97 Oximetry 07/25/16 07/25/16 07/25/16 02:24 03:18 03:24 Temperature Pulse Rate Respiratory 16 16 16 Rate Blood Pressure (mmHg) O2 Sat by Pulse Oximetry 07/25/16 07/25/16 07/25/16 03:27 07:35 08:00 Temperature 98.2 F 98.0 F Pulse Rate 68 64 Respiratory 17 18 18 Rate Blood Pressure 132/65 150/74 (mmHg) O2 Sat by Pulse 95 96 Oximetry Oxygen Devices in Use Now: None Appearance: Middle aged male lying in bed sleeping, awakens to voice, NAD Eyes: No Scleral Icterus Ears/Nose/Mouth/Throat: Mucous Membranes Moist Respiratory: Symmetrical Chest Expansion and Respiratory Effort, Clear to Auscultation - anteriorly Cardiovascular: NL Sounds; No Murmurs; No JVD, RRR, No Edema Abdominal: NL Sounds; No Tenderness; No Distention Extremities: No Clubbing, Cyanosis Skin: No Rash or Ulcers, No Nodules or Sclerosis Neurological: - - sleepy Result Diagrams: 07/24/16 13:07 07/24/16 06:32 Additional Lab and Data: Lab Results 07/22/16 07/22/16 Range/Units 23:10 23:10 WBC 19.1 H (3.5-10.8) 10^3/ul RBC 5.74 H (4.0-5.4) 10^6/ul Hgb 16.7 (14.0-18.0) g/dl Hct 50 (42-52) % MCV 87 (80-94) fL MCH 29 (27-31) pg MCHC 34 (31-36) g/dl RDW 14 (10.5-15) % Plt Count Not Reportable Neut % (Auto) 91.8 H (38-83) % Lymph % (Auto) 4.0 L (25-47) % [place] % (Auto) 3.7 (1-9) % Eos % (Auto) 0 (0-6) % Baso % (Auto) 0.5 (0-2) % Absolute Neuts (auto) 17.5 H (1.5-7.7) 10^3/ul Absolute Lymphs (auto) 0.8 L (1.0-4.8) 10^3/ul Absolute Monos (auto) 0.7 (0-0.8) 10^3/ul Absolute Eos (auto) 0 (0-0.6) 10^3/ul Absolute Basos (auto) 0.1 (0-0.2) 10^3/ul Absolute Nucleated RBC 0 10^3/ul Nucleated RBC % 0 Sodium 138 (133-145) mmol/L Potassium 4.5 (3.5-5.0) mmol/L Chloride 101 (101-111) mmol/L Carbon Dioxide 20 L (22-32) mmol/L Anion Gap 17 H (2-11) mmol/L BUN 16 (6-24) mg/dL Creatinine 1.16 (0.67-1.17) mg/dL Est GFR ( Amer) 90.1 (>60) Est GFR (Non-Af Amer) 70.1 (>60) BUN/Creatinine Ratio 13.8 (8-20) Glucose 157 H (70-100) mg/dL Calcium 11.0 H (8.6-10.3) mg/dL Magnesium 1.9 (1.9-2.7) mg/dL Total Bilirubin 1.00 (0.2-1.0) mg/dL AST 19 (13-39) U/L ALT 15 (7-52) U/L Alkaline Phosphatase 60 (34-104) U/L C-Reactive Protein < 1.00 (< 5.00) mg/L Total Protein 8.1 (6.4-8.9) g/dL Albumin 5.5 H (3.2-5.2) g/dL Globulin 2.6 (2-4) g/dL Albumin/Globulin Ratio 2.1 (1-3) Assess/Plan/Problems-Billing Mr. Wilson is a 41 yo male with PMHx significant for a horseshoe kidney who presented to the emergency room with complaints of N/V/D and abdominal pain. - Patient Problems (1) Nausea and vomiting Current Visit: Yes Status: Acute Code(s): R11.2 - NAUSEA WITH VOMITING, UNSPECIFIED SNOMED Code(s): 35842398 Comment: Unclear if the patient is still nauseated today as he does not readily answer questions. Will continue with standing reglan prior to meals and prn zofran/compazine. EGD did not show anything significant but mild esophagitis was found. Will start omeprazole 20mg daily. Monitor symptoms as he is going to try a bland diet for lunch. Likely home later today. (2) Abdominal pain Current Visit: Yes Status: Acute Code(s): R10.9 - UNSPECIFIED ABDOMINAL PAIN SNOMED Code(s): 85318783 Comment: Abdominal pain seems to be slightly better today but again the patient is not answering my questions all that well. On exam however, the patient does not wince when I palpate his abdomen. (3) DVT prophylaxis Current Visit: Yes Status: Acute Code(s): QQI5365 - SNOMED Code(s): 432654692 Comment: ambulation (4) Full code status Current Visit: Yes Status: Acute Code(s): Z78.9 - OTHER SPECIFIED HEALTH STATUS SNOMED Code(s): 661487860 Status and Disposition: .
[2016-07-25] MEDS ORDERED: Omeprazole CAP* 20 MG PO SCH (12:00)
--- NOTE | 2016-07-25 16:08 | PN ---
Progress Note - Progress Note Note: Pt is feeling slightly better and tolerated ice cream and fruit. He would like to go home today.
[2016-07-25 16:13] VITALS: BP 143/82
--- NOTE | 2016-07-26 03:23 | PRO ---
DATE: 07/25/16 - ROOM #332 REFERRING PHYSICIAN: Dontae Arteaga PROCEDURE: Upper gastrointestinal endoscopy and biopsy of linear spots of exudates in lower esophagus (presumptive emetogenic esophagitis) and CLOtest. INDICATION: This 41-year-old man with a 10-year history of vomiting episodes was admitted with an episode. Overnight, he has been treated with a variety of antiemetics including Reglan. Today, he is much calmer and is willing to discuss that stress has played a role in his condition. He did not choose, however, to elaborate on this. In [place], he had a medical prescription for marijuana, which according to his (RN in [place]) was "so he could eat." ENDOSCOPIST: Luis Carlos Burger FINDINGS: EGD: Larynx - limited views are symmetric. Esophagus - easily entered. The mucosa is normal in the upper and mid esophagus. In the lower 25% of the esophagus, there is a linear pattern of exudative irritation most suggestive of emetogenic esophagitis. There is not a random splattering of white deposits. The patient has not had any antibiotics in over a year and no prednisone. Biopsies were taken at 37 to 38 and submitted per the request for special stains for fungus, though it appears most like emetogenic. The EG junction is at 40 and there is no hiatal hernia or laxity. The patient tolerated the exam exceedingly well and there was no gagging whatsoever at any time. Stomach - generally normal mucosa in the cardia, fundus, body, and antrum. The rugal folds are normal. A CLOtest taken. The antrum is normal. Duodenum - the pylorus, bulb, and second through fourth portions are normal. IMPRESSION: 1. Emetogenic esophagitis - biopsies pending for confirmation. 2. Otherwise normal EGD. Addendum: Bx c/w chemical injury ( supports emesis) with no viral inclusions 3. Nausea and vomiting episode - while sporadically viral gastroenteritis could be playing a role in this episode or some of the episodes over 10 years, stress and possible paradoxical marijuana effects have to be also strongly considered. He is moderately overweight, clearly not failing to eat adequately. Obtaining a primary physician and [facility] at [facility] was discussed with the patient and post procedure with his in addition. [id number]/[facility] #: [id number] [facility]
--- NOTE | 2016-07-26 08:19 | DS ---
DISCHARGE SUMMARY: DATE OF ADMISSION: 07/23/16 DATE OF DISCHARGE: 07/25/16 PRIMARY CARE PROVIDER: To be established. PRINCIPAL DIAGNOSES: 1. Abdominal pain and nausea of unclear etiology. 2. Vomiting, likely secondary to gastroenteritis. 3. Anxiety. DISCHARGE MEDICATIONS: 1. Compazine 10 mg p.o. 6 hours p.r.n. nausea. 2. Zofran ODT 4 mg p.o. q.6 hours p.r.n. nausea. 3. Omeprazole 20 mg p.o. daily. HOSPITAL COURSE: Mr. Wilson is a 41-year-old male who presented to the emergency room on 07/22/16 with complaints of abdominal pain, nausea, and vomiting. The patient is not the greatest historian and states that few days prior to admission began to have vomiting. The patient additionally complains of persistent nausea that has been ongoing for at least a couple of weeks, but when speaking to his , ultimately, it is likely being going on for several months. The patient also has been having abdominal pain that he describes as going on for a couple of weeks. The patient has had on and off nausea and vomiting and diarrhea for approximately 10 years. The patient had a CT scan of the abdomen and pelvis on 07/23/16 that revealed horseshoe kidney. Normal appendix and no acute abdominal pelvic pathology process evident. The patient was admitted and placed on antiemetics and fluids. His vomiting slowly improved over the course of his hospitalization. He was seen in consultation by Dr. Burger on 07/24/16 due to his history of persistent nausea. The patient slowly improved in terms of his nausea. No clear etiology could be identified as a source. He was found to have mild esophagitis on EGD on the morning of . It was felt that this was likely secondary to his recent vomiting. Because of this, I started the patient on omeprazole. He was given a bland diet , which he tolerated a little bit of food prior to discharge. The patient was noted to be significantly anxious throughout his hospitalization. There is question whether or not his anxiety and nervousness may be leading to his symptoms of nausea and abdominal pain. The patient again seemed to slowly improve over the course of his hospitalization. On afternoon of 07/25/16, he was feeling improved enough to go home. I did prescribe both Zofran and Compazine for nausea that could be utilized as needed. We discussed trying either the Zofran or Compazine before each meal to see if this helps. At this point, it is felt that the patient is stable for discharge home. FOLLOWUP CONCERNS: The patient is being discharged home today, 07/25/16. He will get a call from the hospitalist coordinator with appointment day and time with new primary care provider. ACTIVITY LEVEL: As tolerated. DIET: [place], as tolerated. CONDITION ON DISCHARGE: Stable. TIME SPENT: Thirty-five minutes was spent discharging this patient. [id number]/[facility] #: [id number] KENN
== END 2016-07-25 16:40 | disposition home or self-care (01) | DRG 251 ==
LOC: ED 21:51 → MED 07-23 04:47 → SSU 07-23 06:44 → OBSVTOIN 07-24 11:22
PROVIDERS: ADMIT Internal Medicine; ATTEND Hospitalist
PROC: 0DB68ZX Excision of Stomach, Via Natural or Artificial Opening Endoscopic, Diagnostic (ICD-10-PCS; principal; 2016-07-25)
PROC: 0DB38ZX Excision of Lower Esophagus, Via Natural or Artificial Opening Endoscopic, Diagnostic (ICD-10-PCS; 2016-07-25)
DX: R10.9 Unspecified abdominal pain (principal); K20.9 Esophagitis, unspecified; K52.9 Noninfective gastroenteritis and colitis, unspecified; F41.9 Anxiety disorder, unspecified; R11.2 Nausea with vomiting, unspecified; Q63.1 Lobulated, fused and horseshoe kidney; Z88.0 Allergy status to penicillin; Z91.030 Bee allergy status
CPT/HCPCS: 36415; 71020; 74177; 80048; 80053; 81003; 81015; 82150; 83690; 83735; 85025; 85027; 86140; 87040; 87077; 88305; 88312; A9270-GY; J0780; J1170; J1885; J2060; J2175; J2250; J2270; J2405; J2765; Q9967

== ENCOUNTER 2016-07-27 04:10 | Inpatient (IN) | payer BC ==
[2016-07-27 04:56] LABS: Hematocrit 46 % (42-52); Hemoglobin 15.9 g/dl (14.0-18.0); Mean Corpuscular HGB Conc 35 g/dl (31-36); Mean Corpuscular Hemoglobin 30 pg (27-31); Mean Corpuscular Volume 87 fL (80-94); Mean Platelet Volume 9 um3 (7.4-10.4); Red Blood Count 5.24 10^6/ul (4.0-5.4); Red Cell Distribution Width 13 % (10.5-15)
[2016-07-27] MEDS ORDERED: LORazepam TAB(*) 1 MG PO ONE (05:03)
[2016-07-27 05:04] LABS: Urine Bilirubin Negative (Negative); Urine Glucose Negative (Negative); Urine Nitrite Negative (Negative)
[2016-07-27 05:07] LABS: ALT 12 U/L (7-52); AST 13 U/L (13-39); Albumin 4.9 g/dL (3.2-5.2); Alkaline Phosphatase 55 U/L (34-104); Anion Gap 6 mmol/L (2-11); BUN/Creatinine Ratio 9.9 (8-20); Blood Urea Nitrogen 9 mg/dL (6-24); CO2 Carbon Dioxide 34 mmol/L (22-32); Calcium 10.3 mg/dL (8.6-10.3); Chloride 96 mmol/L (101-111); EGFR African American 119.3 (>60); EGFR Non-African American 92.8 (>60); Globulin 2.3 g/dL (2-4); Glucose 152 mg/dL (70-100); Potassium 3.5 mmol/L (3.5-5.0); Sodium 136 mmol/L (133-145); Total Protein 7.2 g/dL (6.4-8.9)
[2016-07-27 05:21] LABS: Benzodiazepine Urine Screen Presumptive Positive (None Detect)
[2016-07-27 05:39] LABS: Acetaminophen < 15 mcg/mL; Alcohol < 10 mg/dL (<10); Salicylate < 2.50 mg/dL (<30)
--- NOTE | 2016-07-27 05:50 | ED ---
I, Feng,Luma, scribed for Kim Dominique MD on 07/27/16 at 0455 . Psychiatric Complaint - HPI Summary HPI Summary: This 41 y/o male presents to ED for acute on chronic depression since tonight. Pt reports SI. PMHx includes kidney stones as well as known anxiety and depression. Positive SA in the past. Pt states that he is feeling "overwhelmed" and confirms SI tonight. Pt is nonsmoker and nondrinker. Pt does not have PCP established due to relocation to [facility]. - History Of Current Complaint Chief Complaint: EDMentalHealth Time Seen by Provider: 07/27/16 04:25 Hx Obtained From: Patient Onset/Duration: Sudden Onset Timing: Constant Severity Initially: Moderate Severity Currently: Moderate Character: Depressed, Anxious Aggravating Factor(s): Recent Stress - Recent GI bug Alleviating Factor(s): Nothing Associated Signs And Symptoms: Positive: Negative Related History: Positive For: Prior Psychiatric Issues - Allergies/Home Medications Allergies/Adverse Reactions: Allergies Allergy/AdvReac Type Severity Reaction Status Date / Time Bee Venom Allergy Swelling Verified 06/29/16 09:12 Of Face,Lips,& Throat Penicillins Allergy Rash Verified 06/29/16 09:11 PMH/Surg Hx/FS Hx/Imm Hx Endocrine/Hematology History: Denies: Hx Diabetes Cardiovascular History: Reports: Hx Hypertension, Hx Syncope - Standing up too fast History: Reports: Hx Kidney Infection, Hx Kidney Stones, Other Problems/ Disorders - UTIs Denies: Hx Renal Disease Musculoskeletal History: Reports: Hx Tendonitis - left wrist Psychiatric History: Reports: Hx Anxiety, Hx Depression - Surgical History Surgery Procedure, Year, and Place: RENAL STENT PLACEMENT/REMOVAL FOR CALCULI 2016, VASECTOMY Infectious Disease History: No Infectious Disease History: Denies: Traveled Outside the [place] in Last 30 Days - Family History Known Family History: Positive: Cardiac Disease, Hypertension, Renal Disease - kidney problems Negative: Diabetes - Social History Alcohol Use: Rare Hx Substance Use: No Substance Use Type: Reports: Marijuana Substance Use Comment - Amount & Last Used: Patient states he was using heavily until 3 weeks ago Hx Tobacco Use: No Smoking Status (MU): Never Smoked Tobacco Review of Systems Negative: Fever Positive: Nausea Positive: Anxious, Depressed All Other Systems Reviewed And Are Negative: Yes Physical Exam Triage Information Reviewed: Yes Vital Signs On Initial Exam: Initial Vitals Temp Pulse Resp BP Pulse Ox 98.8 F 78 16 163/105 95 07/27/16 04:10 07/27/16 04:10 07/27/16 04:10 07/27/16 04:10 07/27/16 04:10 Vital Signs Reviewed: Yes Appearance: Positive: Well-Appearing, No Pain Distress Skin: Positive: Warm, Skin Color Reflects Adequate Perfusion, Dry Head/Face: Positive: Normal Head/Face Inspection Eyes: Positive: EOMI, FRANK, Conjunctiva Clear Neck: Positive: Supple, Nontender, No Lymphadenopathy Respiratory/Lung Sounds: Positive: Clear to Auscultation, Breath Sounds Present Cardiovascular: Positive: RRR, Pulses are Symmetrical in both Upper and Lower Extremities Abdomen Description: Positive: Nontender, Soft Musculoskeletal: Positive: Strength/ROM Intact Neurological: Positive: Sensory/Motor Intact, Alert, Oriented to Person Place, Time Psychiatric: Positive: Depressed AVPU Assessment: Alert - Cougar Coma Scale Coma Scale Total: 15 Diagnostics - Vital Signs Vital Signs Temp Pulse Resp BP Pulse Ox 07/27/16 04:10 98.8 F 78 16 163/105 95 - Laboratory Lab Results: Lab Results 07/27/16 07/27/16 07/27/16 Range/Units 04:43 04:43 04:53 WBC 7.0 (3.5-10.8) 10^3/ul RBC 5.24 (4.0-5.4) 10^6/ul Hgb 15.9 (14.0-18.0) g/dl Hct 46 (42-52) % MCV 87 (80-94) fL MCH 30 (27-31) pg MCHC 35 (31-36) g/dl RDW 13 (10.5-15) % Plt Count 256 (150-450) 10^3/ul MPV 9 (7.4-10.4) um3 Neut % (Auto) 84.0 H (38-83) % Lymph % (Auto) 8.5 L (25-47) % Kern % (Auto) 7.2 (1-9) % Eos % (Auto) 0 (0-6) % Baso % (Auto) 0.3 (0-2) % Absolute Neuts (auto) 5.9 (1.5-7.7) 10^3/ul Absolute Lymphs (auto) 0.6 L (1.0-4.8) 10^3/ul Absolute Monos (auto) 0.5 (0-0.8) 10^3/ul Absolute Eos (auto) 0 (0-0.6) 10^3/ul Absolute Basos (auto) 0 (0-0.2) 10^3/ul Absolute Nucleated RBC 0 10^3/ul Nucleated RBC % 0 Sodium 136 (133-145) mmol/L Potassium 3.5 (3.5-5.0) mmol/L Chloride 96 L (101-111) mmol/L Carbon Dioxide 34 H (22-32) mmol/L Anion Gap 6 (2-11) mmol/L BUN 9 (6-24) mg/dL Creatinine 0.91 (0.67-1.17) mg/dL Est GFR ( Amer) 119.3 (>60) Est GFR (Non-Af Amer) 92.8 (>60) BUN/Creatinine Ratio 9.9 (8-20) Glucose 152 H (70-100) mg/dL Calcium 10.3 (8.6-10.3) mg/dL Total Bilirubin 0.90 (0.2-1.0) mg/dL AST 13 (13-39) U/L ALT 12 (7-52) U/L Alkaline Phosphatase 55 (34-104) U/L Total Protein 7.2 (6.4-8.9) g/dL Albumin 4.9 (3.2-5.2) g/dL Globulin 2.3 (2-4) g/dL Albumin/Globulin Ratio 2.1 (1-3) TSH Pending Urine Color Yellow Urine Appearance Cloudy Urine pH 8.0 (5-9) Ur Specific [place] 1.011 (1.010-1.030) Urine Protein Negative (Negative) Urine Ketones Trace H (Negative) Urine Blood Negative (Negative) Urine Nitrate Negative (Negative) Urine Bilirubin Negative (Negative) Urine Urobilinogen Negative (Negative) Ur Leukocyte Esterase Negative (Negative) Urine Glucose Negative (Negative) Salicylates < 2.50 (<30) mg/dL Urine Opiates Screen (None Detect) Acetaminophen < 15 mcg/mL Ur Barbiturates Screen (None Detect) Ur Phencyclidine Scrn (None Detect) Ur Amphetamines Screen (None Detect) U Benzodiazepines Scrn (None Detect) Urine Cocaine Screen (None Detect) U Cannabinoids Screen (None Detect) Serum Alcohol < 10 (<10) mg/dL 07/27/16 Range/Units 04:53 WBC (3.5-10.8) 10^3/ul RBC (4.0-5.4) 10^6/ul Hgb (14.0-18.0) g/dl Hct (42-52) % MCV (80-94) fL MCH (27-31) pg MCHC (31-36) g/dl RDW (10.5-15) % Plt Count (150-450) 10^3/ul MPV (7.4-10.4) um3 Neut % (Auto) (38-83) % Lymph % (Auto) (25-47) % Kern % (Auto) (1-9) % Eos % (Auto) (0-6) % Baso % (Auto) (0-2) % Absolute Neuts (auto) (1.5-7.7) 10^3/ul Absolute Lymphs (auto) (1.0-4.8) 10^3/ul Absolute Monos (auto) (0-0.8) 10^3/ul Absolute Eos (auto) (0-0.6) 10^3/ul Absolute Basos (auto) (0-0.2) 10^3/ul Absolute Nucleated RBC 10^3/ul Nucleated RBC % Sodium (133-145) mmol/L Potassium (3.5-5.0) mmol/L Chloride (101-111) mmol/L Carbon Dioxide (22-32) mmol/L Anion Gap (2-11) mmol/L BUN (6-24) mg/dL Creatinine (0.67-1.17) mg/dL Est GFR ( Amer) (>60) Est GFR (Non-Af Amer) (>60) BUN/Creatinine Ratio (8-20) Glucose (70-100) mg/dL Calcium (8.6-10.3) mg/dL Total Bilirubin (0.2-1.0) mg/dL AST (13-39) U/L ALT (7-52) U/L Alkaline Phosphatase (34-104) U/L Total Protein (6.4-8.9) g/dL Albumin (3.2-5.2) g/dL Globulin (2-4) g/dL Albumin/Globulin Ratio (1-3) TSH Urine Color Urine Appearance Urine pH (5-9) Ur Specific [place] (1.010-1.030) Urine Protein (Negative) Urine Ketones (Negative) Urine Blood (Negative) Urine Nitrate (Negative) Urine Bilirubin (Negative) Urine Urobilinogen (Negative) Ur Leukocyte Esterase (Negative) Urine Glucose (Negative) Salicylates (<30) mg/dL Urine Opiates Screen None detected (None Detect) Acetaminophen mcg/mL Ur Barbiturates Screen None detected (None Detect) Ur Phencyclidine Scrn None detected (None Detect) Ur Amphetamines Screen None detected (None Detect) U Benzodiazepines Scrn Presumptive positive H (None Detect) Urine Cocaine Screen None detected (None Detect) U Cannabinoids Screen Presumptive positive H (None Detect) Serum Alcohol (<10) mg/dL Result Diagrams: 07/27/16 04:43 07/27/16 04:43 Lab Statement: Any lab studies that have been ordered have been reviewed, and results considered in the medical decision making process. Course/Dx - Course Assessment/Plan: This 41 y/o male presents to ED with chief complaint of anxiety and acute on chronic depression tonight. PMHx does include known depression and anxiety with prior SA, and pt states that he feels overwhelmed. Pt admits to SI tonight. Bloodwork and UA are wnl. Toxicology indicates presumptive positive for benzodiazepine and cannabinoid. pt to be signed out to am attending for full disposition - Differential Dx/Clinical Impression Provider Diagnosis: Depression, Suicidal ideation - Physician Notifications Discussed Care Of Patient With: [facility] Patient Is Medically Stable For: Psych Evaluation - at 0538 am Discharge - Discharge Plan Condition: Stable Disposition: OTHER Discharge Disposition Comment: to be determined The documentation as recorded by the Feng lopez Soohyun accurately reflects the service I personally performed and the decisions made by me, Kim Dominique MD.
[2016-07-27] MEDS ORDERED: Acetaminophen TAB* 325 MG PO PRN (10:26)
[2016-07-27] MEDS: LORazepam TAB(*) 1 MG PO PRN ×2 (10:36→17:10)
[2016-07-27] MEDS: Ondansetron ODT TAB* 4 MG PO ONE ×2 (10:37)
--- NOTE | 2016-07-27 11:22 | CONSULT ---
Consult Consult: Mr. Wilson presented during the night on the previous shift and was medically cleared. He was evaluated by [facility] this morning because of anxiety with psychomotor symptoms and SI. He was voluntarily admitted to the [facility] for Anxiety and SI in stable condition.
[2016-07-27] MEDS: Al Hydrox/Mg Hydrox/Simet LIQ* 30 ML UDC PO PRN (17:09)
[2016-07-27] MEDS: hydrOXYzine HCL TAB* 50 MG PO PRN (21:03)
[2016-07-28] MEDS: Al Hydrox/Mg Hydrox/Simet LIQ* 30 ML UDC PO PRN (08:13)
[2016-07-28] MEDS: Vitamin THERAPEUTIC TAB PO SCH (08:13)
[2016-07-28] MEDS: hydrOXYzine HCL TAB* 50 MG PO PRN ×2 (08:14→15:53)
[2016-07-28] MEDS ORDERED: Influenza VAC *QUAD* 2016-17* 0.5 ML SYRINGE IM ONE (09:00)
[2016-07-28] MEDS: LORazepam TAB(*) 1 MG PO PRN ×2 (09:27→21:39)
[2016-07-28] MEDS ORDERED: Ondansetron ODT TAB* 4 MG PO PRN (10:43)
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
[2016-07-28] MEDS: Prochlorperazine TAB* 10 MG PO PRN (15:53)
[2016-07-28] MEDS: Omeprazole CAP* 20 MG PO SCH (15:53)
--- NOTE | 2016-07-28 16:22 | CONS ---
MEDICAL CONSULT REPORT: DATE OF CONSULTATION / DATE OF DICTATION: 07/28/16 PRIMARY CARE PROVIDER: None listed. REQUESTING PROVIDER: Arnol Mcclure MD CONSULTING PROVIDER: DB Adames SUPERVISING PHYSICIAN: Tamar Hi MD CHIEF COMPLAINT: Nausea and abdominal discomfort. HISTORY OF PRESENT ILLNESS: This is a 41-year-old gentleman with a reported history of depression and anxiety, who was admitted to the medical service on the through the 25 of July with complaints of abdominal discomfort and nausea of an unclear etiology. The patient had a CT scan at the time of admission that showed no acute pathology. Gastroenterology consulted during his hospital stay and he underwent an EGD, which showed some mild esophagitis, but no other acute findings. The patient was discharged on the PPI and p.r.n. antiemetic. The patient returned to the emergency department with suicidal ideation. He is under the care of the Behavioral Health Unit and Dr. Mcclure has requested hospitalist consult if he is continuing to have complaints of nausea and abdominal discomfort. The patient states that he did fill his PPI and antiemetics as prescribed and has been taking them since discharge. He never felt that he improved significantly. He had improved to the point that he was able to take some food prior to discharge, but never felt asymptomatic. He believes that bread seems to be making his symptoms worse. He has been vomiting frequently usually after eating. He believes that he has lost 20 to 30 pounds over the last month or so. He has had normal but infrequent stools generally every 2 to 3 days, but states that it is not difficult to pass but he believes that his abdominal discomfort and nausea gets worse with bowel movements. He denies any hematochezia or hematemesis. No coffee-ground emesis or melena noted. The patient has otherwise been afebrile. Denies any acute illness and his symptoms have been persistent for several weeks or perhaps month. PAST MEDICAL HISTORY: 1. Horseshoe kidney. 2. Depression and anxiety. PAST SURGICAL HISTORY: None. HOME MEDICATIONS: 1. Omeprazole 20 mg p.o. daily. 2. Zofran 4 mg p.o. q.6 hours as needed for nausea. 3. Compazine 10 mg p.o. q.6 hours as needed for nausea. SOCIAL HISTORY: The patient lives at home with his . Denies any regular alcohol. Occasional marijuana. No history of smoking. REVIEW OF SYSTEMS: As noted above in HPI, otherwise he denies chest pain, palpitations, shortness of breath, or abnormal rashes or lesions. PHYSICAL EXAMINATION: General: This is a pleasant young gentleman in no acute distress, who is lying in his room. He was sleeping upon entering, but easily awakens and participates in conversation. Vital Signs: Most recent vitals - temperature 99.1 degrees Fahrenheit, pulse 57 beats per minute, respiratory rate 16 per minute, oxygen saturation 98% on room air, and blood pressure 133/ 72 mmHg. HEENT: Head is normocephalic, atraumatic. Mucous membranes appeared to be pink and moist. Respiratory: Lungs are clear to auscultation without wheezes, crackles, or rhonchi. Cardiovascular: Heart has a regular rate and rhythm without murmurs, rubs, or gallops. Abdomen: Soft, some tenderness to palpation in the mid epigastrium. Bowel sounds are present and exam is otherwise benign. Psych: The patient is alert and appropriately oriented and appropriate in conversation. Skin: Limited exam shows no concerning rashes or lesions. LABORATORY EVALUATION: Reviewed labs from yesterday, 07/27/16, which includes a CBCs within normal limits. White blood cell count 7,000; hemoglobin 15.9 g/dL ; and a platelet count of 256,000. Comprehensive metabolic panel was unremarkable. Sodium of 136 mmol/L, potassium 3.5 mmol/L, BUN 9, and creatinine 0.91. Random glucose of 152 mg/dL and transaminases and total bilirubin are within normal limits. TSH is normal at 1.8. Urinalysis is unremarkable. Urine toxicology screen is positive for benzos and cannabinoids. DIAGNOSTIC STUDIES/IMAGING: Reviewed CT scan from 07/23/16, which showed no acute pathology. EGD pathology from 07/25/16 shows an erosive esophagitis and no other findings on EGD. ASSESSMENT AND PLAN: This is a 41-year-old gentleman, admitted to the Behavioral Health Unit for suicidal ideations. Hospitalist Group is asked to consult in regards to his complaints of continued nausea and abdominal discomfort. 1. Abdominal discomfort and nausea - likely due to gastroesophageal reflux disease. Evidence of erosive esophagitis appreciated on EGD. The patient was discharged on omeprazole, which he states that he has been taking as prescribed. Can trial increasing his PPI for the next 2 weeks, specifically order Protonix 40 mg p.o. b.i.d. for the next 2 weeks and then can be reduced to 20 mg once daily following and will require followup with either primary care or GI depending on the persistence of his symptoms. Could consider Celiac disease as a potential etiology for his complaints. No mention of villous atrophy on EGD. Further workup could be accomplished as an outpatient. Plan to continue p.r.n. antiemetics and a bland diet at this time. 2. Suicidal ideation: Care per psychiatry. 3. Code status. The patient is full code. 4. Health care proxy: The patient's . DISPOSITION: Hospitalist Group will continue to follow along. Medication recommendation as noted above. DB ADAMES CC: Dr. Mcclure [id number]/[facility] #: [id number] [facility]ITAL[facility]
--- NOTE | 2016-07-28 17:20 | PN ---
Hospitalist Progress Note HOSPITALIST ADDENDUM Case reviewed and d/w Axel ACE. Consult requested for patient with c/o abdominal pain and N/V. Agree his symptoms may be associated with GERD (please see discharge summary from prior admission). Agree with current management.
[2016-07-29] MEDS ORDERED: Omeprazole CAP* 20 MG PO SCH (07:30)
[2016-07-29] MEDS: Omeprazole CAP* 20 MG PO SCH ×2 (09:47→16:29)
[2016-07-29] MEDS: Vitamin THERAPEUTIC TAB PO SCH (09:47)
--- NOTE | 2016-07-29 11:36 | PN ---
[facility]: Group Therapy Note - Service Type Service Type: 80027 Group Psychotherapy - Cognitive Behavioral Group Therapy ( CBT):Patient was attentive and participatory in CBT programming this morning, and remained in good behavioral control. Patient expressed positive insights regarding relevant treatment interventions and goals.
--- NOTE | 2016-07-29 12:12 | PN ---
Subjective - Subjective Service Type: 59829 Hosp care 15 min low complexity Subjective: Stan reports doing " a lot better " noting: - reduced somatic discomfort - reduced emotional pain - better outlook, optimism - absence of suicidal ideation --improved coping. He smiled spontaneously, used humor appropriately. We discussed evaluation and treatment planning. He reported a good unit experience. Objective - Appearance Appearance: Well Developed/Nourished Hygiene: Normal Grooming: Well Kept - Behavior Psychomotor Activities: Normal - Attitude and Relatedness Attitude and Relatedness: Cooperative Eye Contact: Good - Speech Quality: Unpressured Latencies: Normal Quantity: Appropriate - Mood Patient's Decription of Mood: "Okay" - Affect Observed Affect: Non-labile Affect Consistent with: Dysphoria - mild, brightens - Thought Process Patient's Thought Process: Coherent Thought Content: No Passive Wish, No Suicidal Planning, No Homicidal Ideation, No Paranoid Ideation - Sensorium Experiencing Hallucinations: No, Sensorium is Clear - Level of Consciousness Level of Consciousness: Alert - Impulse Control Impulse Control: Intact - Insight and Judgement Insight and Judgement: Good Assessment - Assessment Merits Inpatient Hospitalization: For Stabilization, To Initiate Treatment, For Ongoing Evaluation, Consolidate Improvements, For Discharge Planning Inpatient DSM-IV Dx: Mood disorder, not otherwise specified, rule out major depressive disorder, rule out bipolar disorder, anxiety disorder, not otherwise specified. Rule out cannabis use disorder. Clinical Impression: First psychiatric hospitalization for a 41-year-old male with a history of suicide attempt, report of chronic depression and anxiety, reported manic-like symptoms, a family history of suicide, gastrointentinal problems, and recent cannabis use. He was admitted after coming to the hospital voluntarily with concerns over unmanageable depressive symptoms and anxiety and suicidal thoughts. Stabilizing here. Safe on checks, adherent with routines, clinically engaged, and free of active suicidal ideation. Symptoms are milder, in an apparent spontaneous recovery. Somatic, mood and anxiety symptoms are all milder. Further evaluation contemplates psychological testing. Medication management will be as per the clinical course and testing, as it would be important to know whether a Bipolar or unipolar antidepressant regimen is preferred. Plan - Plan Treatment Plan: Name: STAN GREENE Birthdate: 1975 [id number] Continued Medication Management: Consider Medication Medications: Current Medications Acetaminophen (Tylenol Tab*) 650 mg PO Q4H PRN PRN Reason: for pain; or Temp >101 F Al Hydrox/Mg Hydrox/Simethicone (Maalox Plus*) 30 ml PO Q4H PRN PRN Reason: INDIGESTION Last Admin: 07/28/16 08:13 Dose: 30 ml Hydroxyzine HCl (Atarax Tab*) 50 mg PO Q6H PRN PRN Reason: ANXIETY Last Admin: 07/28/16 15:53 Dose: 50 mg Lorazepam (Ativan Tab(*)) 1 mg PO Q4H PRN PRN Reason: ANXIETY Last Admin: 07/28/16 21:39 Dose: 1 mg Multivitamins (Theragran Tab*) 1 tab PO DAILY [facility] Last Admin: 07/29/16 09:47 Dose: 1 tab Omeprazole (Prilosec Cap*) 40 mg PO BID@0730,1630 [facility] Last Admin: 07/29/16 09:47 Dose: 40 mg Ondansetron HCl (Zofran Odt Tab*) 4 mg PO Q6H PRN PRN Reason: NAUSEA Prochlorperazine (Compazine Tab*) 10 mg PO Q6H PRN PRN Reason: NAUSEA Last Admin: 07/28/16 15:53 Dose: 10 mg - Discharge Plan Discharge Plan: Outpatient Follow Up
[2016-07-30] MEDS: Vitamin THERAPEUTIC TAB PO SCH (07:47)
[2016-07-30] MEDS: Omeprazole CAP* 20 MG PO SCH ×2 (07:47→16:58)
[2016-07-30] MEDS: hydrOXYzine HCL TAB* 50 MG PO PRN (10:29)
[2016-07-30] MEDS: Prochlorperazine TAB* 10 MG PO PRN (10:29)
--- NOTE | 2016-07-30 11:50 | PN ---
Subjective - Subjective Service Type: 03893 Hosp care 15 min low complexity Subjective: Stan reports doing worse today, saying stomach pain and nausea are worse, as is mood. He was interested in a brief admission, hopeful to go home soon. I discussed psych. testing results, our opinion that depression should be treated, and that antidepressant tx. is indicated. I informed him of the considerations for Bipolar in our differential, and the bearing on medication choice, along with risks with antidepressants if he indeed has Bipolar disorder. He opted for a trial of Prozac after hearing this , and his other options, and Prozac's profile. Objective - Appearance Appearance: Well Developed/Nourished Hygiene: Normal Grooming: Fairly Well Kept - Behavior Psychomotor Activities: Abnormal-Decreased - Attitude and Relatedness Attitude and Relatedness: Needy Eye Contact: Good - Speech Quality: Unpressured Latencies: Normal Quantity: Terse - Mood Patient's Decription of Mood: "Terrible" - Affect Observed Affect: Non-labile Affect Consistent with: Dysphoria - Thought Process Patient's Thought Process: Coherent, Impoverished Thought Content: No Passive Wish, No Suicidal Planning, No Homicidal Ideation, No Paranoid Ideation - Sensorium Experiencing Hallucinations: No, Sensorium is Clear - Level of Consciousness Level of Consciousness: Alert - Impulse Control Impulse Control: Intact - Insight and Judgement Insight and Judgement: Fair Assessment - Assessment Merits Inpatient Hospitalization: For Stabilization, To Initiate Treatment, For Ongoing Evaluation, For Discharge Planning, Pending Safe DC Plan Inpatient DSM-IV Dx: Mood disorder, not otherwise specified, rule out major depressive disorder, rule out bipolar disorder, anxiety disorder, not otherwise specified. Rule out cannabis use disorder. Clinical Impression: First psychiatric hospitalization for a 41-year-old male with a history of suicide attempt, report of chronic depression and anxiety, reported manic-like symptoms, a family history of suicide, gastrointentinal problems, and recent cannabis use. He was admitted after coming to the hospital voluntarily with concerns over unmanageable depressive symptoms and anxiety and suicidal thoughts. Stabilizing here, but seems to be in an up and down course symptom-pruitt. Is safe on checks, adherent with routines, clinically engaged, and free of active suicidal ideation. Symptoms were relatively milder, in an apparent spontaneous recovery, . Somatic and mood symptoms remain prominent now. Evaluation includes psychological testing. MMPI had a highly elevated profile, consistent with overendorsement of pathology. This can support reduced weighting of patient's admission report of symptoms, particularly around his reporting of prior manic-like symptoms. As a result we can be less cautious of using antidepressant (less concerned for Bipolar diagnosis). Rorshcach projective testing was consistent with depression. Details in Dr. Connolly's note. Medication management will start Prozac. Given ongoing distress, probable impairing mood symptoms, and pt. risk profile, inpatient care remains necessary. Plan - Plan Treatment Plan: Name: STAN GREENE Birthdate: 1975 [id number] Continued Medication Management: Start Medication Medications: Current Medications Acetaminophen (Tylenol Tab*) 650 mg PO Q4H PRN PRN Reason: for pain; or Temp >101 F Al Hydrox/Mg Hydrox/Simethicone (Maalox Plus*) 30 ml PO Q4H PRN PRN Reason: INDIGESTION Last Admin: 07/28/16 08:13 Dose: 30 ml Hydroxyzine HCl (Atarax Tab*) 50 mg PO Q6H PRN PRN Reason: ANXIETY Last Admin: 07/30/16 10:29 Dose: 50 mg Lorazepam (Ativan Tab(*)) 1 mg PO Q4H PRN PRN Reason: ANXIETY Last Admin: 07/28/16 21:39 Dose: 1 mg Multivitamins (Theragran Tab*) 1 tab PO DAILY [facility] Last Admin: 07/30/16 07:47 Dose: 1 tab Omeprazole (Prilosec Cap*) 40 mg PO BID@0730,1630 [facility] Last Admin: 07/30/16 07:47 Dose: 40 mg Ondansetron HCl (Zofran Odt Tab*) 4 mg PO Q6H PRN PRN Reason: NAUSEA Last Admin: 07/30/16 11:22 Dose: 4 mg Prochlorperazine (Compazine Tab*) 10 mg PO Q6H PRN PRN Reason: NAUSEA Last Admin: 07/30/16 10:29 Dose: 10 mg - Discharge Plan Discharge Plan: Outpatient Follow Up
--- NOTE | 2016-07-30 12:01 | PN ---
[facility]: Group Therapy Note - Service Type Service Type: 22727 Group Psychotherapy - Cognitive Behavioral Group Therapy ( CBT):Patient was attentive and participatory in CBT programming this morning, and remained in good behavioral control. Patient expressed positive insights regarding relevant treatment interventions and goals.
[2016-07-30] MEDS: LORazepam TAB(*) 1 MG PO PRN (13:55)
--- NOTE | 2016-07-30 16:46 | PN ---
Subjective Date of Service: 07/30/16 Interval History: Patient seen and examined. Pt states that he continues to have abdominal discomfort and feels bloated. He also reports a low grade fever, belching, constipations, nausea, poor appetite and generally not feeling well. Denies chills, shortness of breath, chest discomfort, V/D. Per [facility]G staff Pt reported vomiting earlier today. Family History: Unchanged from Admission Social History: Unchanged from Admission Past Medical History: Unchanged from Admission Objective Active Medications: Acetaminophen (Tylenol Tab*) 650 mg PO Q4H PRN Reason: for pain; or Temp >101 F Al Hydrox/Mg Hydrox/Simethicone (Maalox Plus*) 30 ml PO Q4H PRN Reason: INDIGESTION Hydroxyzine HCl (Atarax Tab*) 50 mg PO Q6H PRN Reason: ANXIETY Lorazepam (Ativan Tab(*)) 1 mg PO Q4H PRN Reason: ANXIETY Multivitamins (Theragran Tab*) 1 tab PO DAILY [facility] Omeprazole (Prilosec Cap*) 40 mg PO BID@0730,1630 [facility] Ondansetron HCl (Zofran Odt Tab*) 4 mg PO Q6H PRN Reason: NAUSEA Prochlorperazine (Compazine Tab*) 10 mg PO Q6H PRN Reason: NAUSEA Vital Signs 07/30/16 07/30/16 07/30/16 13:38 13:55 14:35 Temperature 100.0 F Respiratory 16 16 Rate Oxygen Devices in Use Now: None Appearance: NAD, ill appearing, sitting in [place] Eyes: No Scleral Icterus, PERRLA Ears/Nose/Mouth/Throat: NL Teeth, Lips, Gums, Mucous Membranes Moist Neck: NL Appearance and Movements; NL JVP, Trachea Midline Respiratory: Symmetrical Chest Expansion and Respiratory Effort, Clear to Auscultation Cardiovascular: NL Sounds; No Murmurs; No JVD, RRR Abdominal: - - Bowel sounds present, abdomen soft, slightly tender in epigastric area, non distended Extremities: No Edema Skin: No Rash or Ulcers Neurological: Alert and Oriented x 3, NL Muscle Strength and Tone Nutrition: Taking PO's Result Diagrams: 07/27/16 04:43 07/27/16 04:43 Additional Lab and Data: Assess/Plan/Problems-Billing Assessment: Mr. Wilson is a 41 yo male with PMH significant for horseshoe shaped kidney, anxiety and depression who presented to the emergency room with SI. Hospitalists were asked to consult on the patient regarding abdominal discomfort and nausea. - Patient Problems (1) Suicidal ideation Code(s): R45.851 - SUICIDAL IDEATIONS SNOMED Code(s): 3140050 Comment: - Mangement per Psychiatry (2) Abdominal pain Code(s): R10.9 - UNSPECIFIED ABDOMINAL PAIN SNOMED Code(s): 36673813 Comment: - Continues to have abdominal pain - The patient does not wince when I palpate his abdomen - Suspect this is related to GERD. Pt with evidence of erosive esophagitis on EGD 2/ - Continue increased dose of PPI for 2 weeks and than decrease back to daily dosing - Suspect this could also be related to constipation. Bowel medications ordered (3) Nausea Code(s): R11.0 - NAUSEA SNOMED Code(s): 145080044 Comment: - No BM for 5 days - Passing flatus - Suspect this could be related to constipation - Bowel medications ordered (4) DVT prophylaxis Code(s): HJS9342 - SNOMED Code(s): 885603662 Comment: ambulation (5) Full code status Code(s): Z78.9 - OTHER SPECIFIED HEALTH STATUS SNOMED Code(s): 240099810 Status and Disposition: Inpatient on BSU. Disposition per Psychiatry.
[2016-07-30] MEDS: Polyethylene Glycol 3350* 17 GM PACKET PO PRN (18:03)
[2016-07-30] MEDS: Magnesium Hydroxide LIQ* 30 ML UDC PO PRN (18:03)
[2016-07-31] MEDS: Polyethylene Glycol 3350* 17 GM PACKET PO PRN (08:22)
[2016-07-31] MEDS: Omeprazole CAP* 20 MG PO SCH ×2 (08:23→16:48)
[2016-07-31] MEDS: Vitamin THERAPEUTIC TAB PO SCH (08:23)
[2016-07-31] MEDS: hydrOXYzine HCL TAB* 50 MG PO PRN ×2 (08:26→22:21)
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
[2016-07-31] MEDS: FLUoxetine CAP* 20 MG PO SCH (13:56)
--- NOTE | 2016-07-31 17:34 | PN ---
Hospitalist Progress Note . Mr Wilson was seen and evaluated in the U. He reports his abdominal pain is much better and hasn't had any further N/V. He feels constipated but reports he feels like he may have a BM. Appearance: A+O x3 in NAD. Very friendly, appropriate. Steady gait. non-toxic appearing. Abdominal Exam: soft, nontender, non-distended. Will sign off for now. Please let our service know if there are any further issues we can help with.
[2016-07-31] MEDS: LORazepam TAB(*) 1 MG PO PRN (17:51)
[2016-07-31] MEDS: Polyethylene Glycol 3350* 17 GM PACKET PO SCH (21:47)
[2016-08-01] MEDS: LORazepam TAB(*) 1 MG PO PRN ×2 (07:26→18:14)
[2016-08-01] MEDS: Omeprazole CAP* 20 MG PO SCH ×2 (07:27→16:27)
[2016-08-01] MEDS: Polyethylene Glycol 3350* 17 GM PACKET PO SCH (08:46)
[2016-08-01] MEDS: Vitamin THERAPEUTIC TAB PO SCH (08:46)
[2016-08-01] MEDS: FLUoxetine CAP* 20 MG PO SCH (08:46)
[2016-08-01] MEDS: Magnesium Hydroxide LIQ* 30 ML UDC PO PRN (11:39)
[2016-08-02] MEDS: LORazepam TAB(*) 1 MG PO PRN ×2 (00:49→08:16)
[2016-08-02] MEDS: Vitamin THERAPEUTIC TAB PO SCH (08:16)
[2016-08-02] MEDS: Omeprazole CAP* 20 MG PO SCH ×2 (08:17→16:09)
[2016-08-02] MEDS: FLUoxetine CAP* 20 MG PO SCH (08:17)
[2016-08-02] MEDS: Polyethylene Glycol 3350* 17 GM PACKET PO SCH (08:17)
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
[2016-08-02] MEDS: hydrOXYzine HCL TAB* 50 MG PO PRN (16:09)
[2016-08-03] MEDS: hydrOXYzine HCL TAB* 50 MG PO PRN (08:09)
[2016-08-03] MEDS: FLUoxetine CAP* 20 MG PO SCH (08:09)
[2016-08-03] MEDS: Omeprazole CAP* 20 MG PO SCH (08:09)
[2016-08-03] MEDS: Vitamin THERAPEUTIC TAB PO SCH (08:09)
[2016-08-03 08:59] VITALS: BP 154/87
[2016-08-03] MEDS: Polyethylene Glycol 3350* 17 GM PACKET PO SCH (09:12)
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
== END 2016-08-03 13:05 | disposition home or self-care (01) | DRG 753 ==
LOC: ED 04:10 → BSU 11:07
PROVIDERS: ADMIT Psychiatry & Neurology Psychiatry; ATTEND Psychiatry & Neurology Psychiatry
PROC: GZHZZZZ Group Psychotherapy (ICD-10-PCS; principal; 2016-07-29)
PROC: GZ58ZZZ Individual Psychotherapy, Cognitive-Behavioral (ICD-10-PCS; 2016-07-29)
DX: F31.9 Bipolar disorder, unspecified (principal); R45.851 Suicidal ideations; F41.9 Anxiety disorder, unspecified; F12.90 Cannabis use, unspecified, uncomplicated; Z87.442 Personal history of urinary calculi; Z88.0 Allergy status to penicillin; Z91.030 Bee allergy status; Z87.440 Personal history of urinary (tract) infections; Z98.52 Vasectomy status; Z56.0 Unemployment, unspecified; Q63.1 Lobulated, fused and horseshoe kidney; G89.29 Other chronic pain; R10.9 Unspecified abdominal pain; K20.8 Other esophagitis; K59.00 Constipation, unspecified; K21.9 Gastro-esophageal reflux disease without esophagitis
CPT/HCPCS: 36415; 80053; 80307; 80320; 80329; 81003; 84443; 85025; 90853; 96102; 99222; 99231; 99238; A9270-GY; G0480; Q0164